=== PATIENT | female | born 1975 | race Caucasian/White ===

== ENCOUNTER 2022-09-28 09:07 | Outpatient (CLI) | payer BC, SELFPAY ==
--- NOTE | 2022-09-28 09:15 | CRLHL7_ITS ---
For Patients: As a result of the Century Cures Act, medical imaging exams and procedure reports are released immediately into your electronic medical record. You may view this report before your referring provider. If you have questions, please contact your health care provider. BILATERAL SCREENING MAMMOGRAM WITH COMPUTER-AIDED DETECTION TECHNIQUE: CC and MLO views were obtained. These mammographic images have been obtained using full-field digital technique. These mammographic images were interpreted with the benefit of computer-aided detection. COMPARISON FILM: 09/27/21, 08/17/20, 09/24/19. FINDINGS: The breasts are heterogeneously dense, which may obscure small masses. IMPRESSION: There is no radiographic evidence for malignancy. ASSESSMENT: BI-RADS Category 1: Negative RECOMMENDATION: Routine screening mammogram in 1 year. A lay language report of this examination will be provided to the patient. FRED DOHERTY M.D. Diagnostic/Nuclear Medicine Radiologist [email or web address] Transcribed: 2:[address]/Dictated by: Fred Doherty MD @ 09/28/2022 10:06:00 AM (Electronically Signed)
== END 2022-09-28 09:08 | disposition home or self-care (01) ==
LOC: MAMMO 09:08
PROVIDERS: PCP Internal Medicine; Visit Provider Internal Medicine
DX: Z12.31 Encounter for screening mammogram for malignant neoplasm of breast (principal); R92.2 Inconclusive mammogram; Z01.419 Encounter for gynecological examination (general) (routine) without abnormal findings; E78.5 Hyperlipidemia, unspecified; E03.9 Hypothyroidism, unspecified
CPT/HCPCS: 77067; 80053; 80061; 84443

== ENCOUNTER 2023-11-30 08:12 | Outpatient (CLI) | payer MEDICAID, SELFPAY | END 2023-11-30 08:13 | disposition home or self-care (01) | LOC: NFLDREF 10:12 | PROVIDERS: PCP Internal Medicine; Referring Provider Internal Medicine; Visit Provider Internal Medicine | DX: E03.9 Hypothyroidism, unspecified (principal); E06.3 Autoimmune thyroiditis; E78.5 Hyperlipidemia, unspecified | CPT/HCPCS: 80053; 80061; 84443 ==

== ENCOUNTER 2023-11-30 08:16 | Outpatient (CLI) | payer MEDICAID, SELFPAY ==
--- NOTE | 2023-11-30 09:15 | CRLHL7_ITS ---
For Patients: As a result of the Century Cures Act, medical imaging exams and procedure reports are released immediately into your electronic medical record. You may view this report before your referring provider. If you have questions, please contact your health care provider. BILATERAL SCREENING MAMMOGRAM WITH COMPUTER-AIDED DETECTION AND TOMOSYNTHESIS TECHNIQUE: CC and MLO views were obtained. These mammographic images have been obtained using full-field digital technique. These mammographic images were interpreted with the benefit of computer-aided detection. Breast Tomosynthesis was used in this interpretation. COMPARISON FILM: 09/28/22, 09/27/21, 08/17/20. FINDINGS: The breasts are heterogeneously dense, which may obscure small masses. IMPRESSION: There is no radiographic evidence for malignancy. ASSESSMENT: BI-RADS Category 1: Negative RECOMMENDATION: Routine screening mammogram in 1 year. A lay language report of this examination will be provided to the patient. Roly Tapia M.D. Diagnostic Radiologist [email or web address] SP/Dictated by: Roly Tapia MD @ 11/30/2023 10:09:00 AM (Electronically Signed)
--- NOTE | 2023-11-30 11:15 | CRLHL7_ITS ---
For Patients: As a result of the Century Cures Act, medical imaging exams and procedure reports are released immediately into your electronic medical record. You may view this report before your referring provider. If you have questions, please contact your health care provider. INDICATION: Menorrhagia COMPARISON: none TECHNIQUE: 2D gale scale and color Doppler images were acquired of the pelvis using a transabdominal and transvaginal approach. FINDINGS: Sonographic images demonstrate a normal size and smooth outer contour of the uterus. Uterus measures 10.2 cm in length by 3.6 cm in AP diameter by 4.7 cm in transverse dimension. Intramural fibroid is present measuring 1.6 x 1.4 x 1.5 cm. The endometrial lining measures 12 mm in composite thickness. Post endometrial biopsy changes are present. Echogenic focus associated with the fundal endometrium measuring 2.0 x 0.8 x 1.5 cm. The right ovary measures 3.2 x 2.4 x 2.6 cm in size and the left ovary measures 2.9 x 0.9 x 1.5 cm. The ovaries demonstrate normal arterial and venous blood flow on color Doppler analysis. There are no suspicious fluid collections within the cul-de-sac. Collapsing cyst right ovary measuring 2.4 x 1.5 x 2.0 cm. IMPRESSION: Endometrial thickness 1.2 cm with possible polyp versus post endometrial biopsy changes. Collapsing right ovarian cyst measuring 2.4 cm. No excess pelvic free fluid. Intramural fibroid measuring 1.6 cm. Dictated by Roly Tapia MD @ 11/30/2023 12:44:34 PM (Electronically Signed)
== END 2023-11-30 08:17 | disposition home or self-care (01) ==
PROVIDERS: PCP Internal Medicine; Visit Provider Internal Medicine
DX: Z12.31 Encounter for screening mammogram for malignant neoplasm of breast (principal); R92.2 Inconclusive mammogram; N92.0 Excessive and frequent menstruation with regular cycle; N83.201 Unspecified ovarian cyst, right side; R93.89 Abnormal findings on diagnostic imaging of other specified body structures; D25.1 Intramural leiomyoma of uterus
CPT/HCPCS: 76830; 76856; 77063; 77067

== ENCOUNTER 2024-10-20 08:05 | Outpatient (CLI) | payer BC, SELFPAY ==
--- OUTSIDE RECORDS SUMMARY | 2024-10-20 08:08 | XMS_ITS | Clinical Summary ---
Author Organization [facility] Address [address] [place] [id number] Care Team Providers Care Optical Assistant Name Role Phone Franco Metz MD Primary Care Provider Allergies No known active allergies Social History Tobacco Use Types Packs/Day Years Used Date Smoking Tobacco: Never Assessed Adolescent Education Answer Date Record ed Getting School Help Needed Not on file 08/03 Comments Unknown Sex and Gender Information Value Date Recorded Sex Assigned at Not on file Legal Sex Female 3:04 PM CDT Gender Identity Not on file Sexual Orientation Not on file Plan of Treatment Health Maintenance Due Date Last Done Comments ADVANCE CARE PLANNING 1974 ANNUAL REVIEW OF HM ORDERS 1974 CT COLONOGRAPHY 1974 FIT 1974 FLEX SIG 1974 GLUCOSE 1974 MAMMO SCREENING 1974 YEARLY PREVENTIVE VISIT 1974 sDNA (Cologuard) 1974 COLONOSCOPY 1984 COLORECTAL CANCER SCREENING 1984 HIV SCREENING 1989 HEPATITIS C SCREENING 1992 HEPATITIS B IMMUNIZATION (1 of 3 - 19+ 3-dose series) 1993 LIPID 2014 PAP 11/28/2021 11/28/2018, 11/28/2018 PHQ-2 (once per calendar year) 2023 COVID-19 Vaccine (3 - 2023- season) 2024 01/15/2021, 12/25/2020 INFLUENZA VACCINE (#1) 2024 , 10/01/2020, 09/09/2019, Additional history exists ZOSTER IMMUNIZATION (1 of 2) 2024 DTAP/TDAP/TD IMMUNIZATION (3 - Td or Tdap) 12/18/2029 12/18/2019, 09/13/2010 RSV VACCINE (1 - 1-dose 75+ series) 2049 HPV IMMUNIZATION Aged Out No longer e ligible based on patient's age to complete this topic MENINGITIS IMMUNIZATION Aged Out No l onger eligible based on patient's age to complete this topic Pneumococcal Vaccine: Pediatrics (0 to 5 Years) and At-Risk Patients (6 to 64 Years) Aged Out No longer eligible based on patient's age to complete this topic RSV MONOCLONAL ANTIBODY Aged Out No l onger eligible based on patient's age to complete this topic Insurance [facility] Care Teams Optical Assistant Relationship Specialty Start Date End Date Franco Metz MD [facility] [address] [place] [address] PCP - General Emergency Medicine 07/02/17
--- OUTSIDE RECORDS SUMMARY | 2024-10-20 08:08 | XMS_ITS | Referral Summary ---
Author Organization [facility] Address [address] [place] [address]. [place] [address] Care Team Providers Care Promotions Representative Name Role Phone Franco Metz MD Primary [...] Orientation Not on file Plan of Treatment Not on file Insurance [facility] [place] [place] [address] Care Teams Promotions Representative Relationship Specialty Start Date End Date Franco Metz MD [facility] [address] [place], [place] [id number] PCP - General Emergency Medicine 07/02/17
--- OUTSIDE RECORDS SUMMARY | 2024-10-20 08:08 | XMS_ITS | Encounter Summary ---
Author Organization [facility] Address [address] [place] [id number] Care Team Providers Care Industrial Technologist Name Role Phone Franco Metz MD Primary Care Provider Reason for Visit * Reason Onset Date Comments Appointment 05/02/2022 Please call to sandee lo a calcium Coronary scan appt Encounter Details Date Type Department Care Team (Late st Contact Info) Description 05/02/2022 [facility] [address] [id number] None Appointment (Please call to schedule a calcium Coronary scan appt) Social History Tobacco Use Types Packs/Day Years Used Date Smoking Tobacco: Never Assessed Comments Unknown Sex and Gender Information Value Date Recorded Sex Assigned at Not on file Legal Sex Female 3:04 PM CDT Gender Identity Not on file Sexual Orientation Not on file documented as of this encounter Miscellaneous Notes * Telephone Encounter - Allison Cortez - 05/02/2022 3:35 PM CDT [facility] Call Center Phone Message May a detailed message be left on voicemail: yes Reason for Call: Appointment Intake Referring Provider Name: Diagnosis and/or Symptoms: needs to be called to schedule a coronary calcium scan at Action Taken: Message routed to: [facility] cardio Travel Screening: Not Applicable documented in this encounter Plan of Treatment Not on file documented as of this encounter Visit Diagnoses Not on filedocumented in this encounter Care Teams Industrial Technologist Relationship Specialty Start Date End Date Franco Metz MD [facility] [address] [place] [address] PCP - General Emergency Medicine 07/02/17 documented as of this encounter
--- OUTSIDE RECORDS SUMMARY | 2024-10-20 08:08 | XMS_ITS | Clinical Summary ---
Author Organization [facility] Address [place], [place] [address] Care Team Providers Care Record Tester Name Role Phone Lazara Salcido MD Primary Care Provider [phone] Allergies Active Allergy Reactions Criticality Noted Date Comments Penicillins Intolerance-Can't Take 01/25/2008 Local reaction to right gluteal injection Medications atorvastatin (LIPITOR) 20 mg tablet Take 20 mg by mouth at bedtime. 10/16/2023 Active atorvastatin (LIPITOR) 40 mg tablet Take 40 mg by mouth at bedtime. 10/16/2023 Active levothyroxine (SYNTHROID) 75 mcg tablet Take 75 mcg by mouth once daily. 11/01/2023 Active montelukast (SINGULAIR) 10 mg tablet Take 10 mg by mouth at bedtime. 10/16/2023 Active azithromycin (ZITHROMAX) 250 mg tabletIndications :Strep pharyngitis Take 500 mg (2 tabs) by mouth on day 1, then 250 mg (1 tab) daily for days 2-5. 6 Tablet 12/21/2023 Active Active Problems Problem Noted Date Diagnosed Date FAMILY HX OF PREMATURE CORONARY ARTERY DISEASE Other and unspecified hyperlipidemia RECENT NICOTINE DEPENDENCE Social History Tobacco Use Types Packs/Day Years Used Date Smoking Tobacco: Former Cigarettes 0.3 10 1 11/12/1995 - 09/12/2006 Tobacco Cessation:Counseling Given: Not Answered Comments:social smoker- one pack a week Alcohol Use Standard Drinks/Week Comments Yes 0 (1 standard drink = 0.6 oz pur e alcohol) 2 drinks a week Social Connections Answer Date Recorded Do you often feel lonely or isolated from those around you? 0 12/21/2023 Financial Resource Strain Answer Date R ecorded Difficulty of Paying Living Expenses 3 12/21/2023 Difficulty of Paying Living Expenses Not on file 12/21/2023 Food Insecurity Answer Date Recorded Do you worry your food will run out before you are able to buy more? 1 12/21/2023 Transportation Needs Answer Date Record ed Does lack of transportation keep you from medica l appointments? 1 12/21/2023 Does lack of transportation keep you from work, meetings or getting things that you need? 1 12/21/2023 Housing Stability Answer Date Recorded What is your housing situation today? 1 12/21/2023 Comments No Sex and Gender Information Value Date Recorded Sex Assigned at Not on file Legal Sex Female 7:12 AM GOLF INSTRUCTOR Gender Identity Not on file Sexual Orientation Not on file Obstetrics History Last Filed Vital Signs Vital Sign Reading Time Taken Comments Blood Pressure 120/76 12/21/2023 2:08 PM GOLF INSTRUCTOR Pulse 123 12/21/2023 2:08 PM GOLF INSTRUCTOR Temperature 37.1 C (98.8 F) 12/21/2023 2:08 PM GOLF INSTRUCTOR just took 1000mg of tylenol Respiratory Rate 16 11/01/2011 2:52 PM GOLF INSTRUCTOR Oxygen Saturation 96% 12/21/2023 2:0 8 PM GOLF INSTRUCTOR Inhaled Oxygen Concentration - - Weight 93.9 kg (207 lb) 12/21/2023 2:08 PM GOLF INSTRUCTOR Height 167.6 cm (5' 6) 10/09/2006 3:30 PM GOLF INSTRUCTOR Body Mass Index - - Plan of Treatment Health Maintenance Due Date Last Done Comments Tdap 1985 Depression screening for age 12+ 1986 HIV for age 15-65 1989 BMI (ht and wt on same day) for age 18+ 1992 Hepatitis C screening for age 18-79 1992 Tetanus booster 1994 Colonoscopy through age 75 2019 Lipids for age 45-75 2019 Mammogram for age 45-75 2019 COVID-19 vaccine series ( season) 2024 01/15/2021, 12/25/2020 Influenza for age 50-64 2024 Zoster (shingles) series for age 50+ (1 of 2) 2024 Pap test for age 21-65 11/30/2026 4, 11/30/2023, 11/28/2018, Additional history exists Pneumococcal series for age 6-64 Aged Out No longer eligible based on patient's age to complete this topic Procedures Procedure Name Priority Date/Time Associated Diagnosis Comments HPV HIGH RISK Routine 11/30/2023 9:30 AM GOLF INSTRUCTOR from Last 3 Months or Most Recently Relevant to Health Maintenance Results * HPV HIGH RISK (11/30/2023 9:30 AM GOLF INSTRUCTOR) TYPE 16 Negative Negative 12/05/2023 5:12 PM GOLF INSTRUCTOR [facility] TYPE 18 Negative Negative 12/05/2023 5:12 PM GOLF INSTRUCTOR [facility] OTHER HIGH RISK TYPES Negative Negative 12/05/2023 5:12 PM GOLF INSTRUCTOR [facility] Other (Cervical) 11/30/2023 9:30 AM GOLF INSTRUCTOR 12/03/2023 5:33 PM GOLF INSTRUCTOR Narrative [facility] - 12/05/2023 5:12 PM GOLF INSTRUCTOR HPV types 16, 18, 31, 33, 35, 39, 45, 51, 52, 56, 58, 59, 66 and 68 DNA were undetectable or below the pre-set threshold. Methodology: Karen Gavin 4800 HPV Test us Vonnie Beckman NP MICROBIOLOGY Final Res ult [facility] [address] [place] [id number], from Last 3 Months or Most Recently Relevant to Health Maintenance Insurance [facility] [employer] Care Teams Record Tester Relationship Specialty Start Date End Date Lazara Salcido MD [address] [place] [phone] PCP - General Obstetrics and Gynecology 09/05/11
--- NOTE | 2024-10-20 09:06 | W.ANESCHARGE ---
Anesthesia Charges Start Date/Time Anesthesia Start Date: 10/20/24 Anesthesia Start Time: 08:38 Stop Date/Time Anesthesia Stop Date: 10/20/24 Anesthesia Stop Time: 09:05
--- NOTE | 2024-10-20 09:31 | W.ANESCHARGE ---
Anesthesia Charges Start Date/Time Anesthesia Start Date: 10/20/24 Anesthesia Start Time: 08:38 Stop Date/Time Anesthesia Stop Date: 10/20/24 Anesthesia Stop Time: 09:05
== END 2024-10-20 08:06 | disposition home or self-care (01) ==
LOC: OP CLINIC 08:06
PROVIDERS: PCP Internal Medicine; Visit Provider Surgery
DX: Z12.11 Encounter for screening for malignant neoplasm of colon (principal); D12.8 Benign neoplasm of rectum; Z80.0 Family history of malignant neoplasm of digestive organs
CPT/HCPCS: 00811; 45385; 88305; J2704

== ENCOUNTER 2024-12-26 07:33 | Outpatient (CLI) | payer BC, SELFPAY | END 2024-12-26 07:34 | disposition home or self-care (01) | LOC: NFLDREF 12:52 | PROVIDERS: PCP Internal Medicine; Referring Provider Internal Medicine; Visit Provider Internal Medicine | DX: Z00.00 Encounter for general adult medical examination without abnormal findings (principal); E78.5 Hyperlipidemia, unspecified; E06.3 Autoimmune thyroiditis; E03.9 Hypothyroidism, unspecified; Z13.6 Encounter for screening for cardiovascular disorders; Z13.9 Encounter for screening, unspecified | CPT/HCPCS: 80053; 80061; 84439; 84443 ==

== ENCOUNTER 2025-02-23 12:52 | Outpatient (CLI) | payer BC, SELFPAY ==
--- NOTE | 2025-02-23 13:00 | CRLHL7_ITS ---
For Patients: As a result of the Century Cures Act, medical imaging exams and procedure reports are released immediately into your electronic medical record. You may view this report before your referring provider. If you have questions, please contact your health care provider. INDICATION: BILATERAL SCREENING MAMMOGRAM, ASYMPTOMATIC 49 YEAR OLD FEMALE COMPARISON: 11/30/23, 09/28/22, 09/27/21 TECHNIQUE: CC and MLO views were obtained. These mammographic images have been obtained using full-field digital technique. These mammographic images were interpreted with the benefit of computer aided detection and tomosynthesis. BREAST COMPOSITION: The breasts are heterogeneously dense, which may obscure small masses. FINDINGS: No suspicious findings. ASSESSMENT: BI-RADS 1 Negative RECOMMENDATION: Annual screening mammogram. A lay language report of this examination will be provided to the patient. Dictated by: Roly Tapia MD @ 03/04/2025 09:08:55 (Electronically Signed)
== END 2025-02-23 12:53 | disposition home or self-care (01) ==
LOC: MAMMO 12:53
PROVIDERS: PCP Internal Medicine; Visit Provider Internal Medicine
DX: Z12.31 Encounter for screening mammogram for malignant neoplasm of breast (principal); R92.333 Mammographic heterogeneous density, bilateral breasts
CPT/HCPCS: 77063; 77067

== ENCOUNTER 2025-07-15 10:23 | Outpatient (CLI) | payer BC, SELFPAY | END 2025-07-15 10:24 | disposition home or self-care (01) | LOC: NFLDREF 07-20 21:04 | PROVIDERS: PCP Internal Medicine; Referring Provider Internal Medicine; Visit Provider Internal Medicine | DX: E03.9 Hypothyroidism, unspecified (principal) | CPT/HCPCS: 84439; 84443 ==

== ENCOUNTER 2025-09-21 13:27 | Outpatient (CLI) | payer BC, SELFPAY ==
[2025-09-21 15:13] LABS: Albumin* 4.5 g/dL (3.3-5.0); Chloride* 98 mmol/L (96-114); Potassium* 4.0 mmol/L (3.6-5.1); Sodium* 136 mmol/L (135-149)
[2025-09-21 15:15] LABS: Iron* 72 ug/dL (37-170)
[2025-09-21 15:16] LABS: Alanine Aminotransferase* 35 U/L (4-35); Alkaline Phosphatase* 72 U/L (40-150); Anion Gap 8 mEq/L (7-15); Aspartate Amino Transferase* 31 U/L (12-35); Bilirubin Total* 0.8 mg/dL (0.1-1.5); Blood Urea Nitrogen* 11 mg/dL (7-30); Carbon Dioxide* 30 mmol/L (20-32); Creatinine* 0.8 mg/dL (0.5-1.5); Estimated Glomerular Filt Rate 89 ml/min; Total Protein* 7.4 g/dL (6.0-8.3)
[2025-09-21 15:17] LABS: Calcium* 9.1 mg/dL (8.4-10.6); Glucose* 89 mg/dL (60-115)
[2025-09-21 15:25] LABS: Percent Iron Saturation 23 % (20-50); Total Iron Binding Capacity 315 ug/dL (265-497)
[2025-09-21 15:34] LABS: Free T4 Free Thyroxine* 0.82 ng/dL (0.70-1.85)
[2025-09-21 18:01] LABS: Erythrocyte SedimentationRate* 7 mm/hr (2-20)
[2025-09-23 11:02] LABS: TPO Antibody 268.7 IU/mL (0.0-9.0)
[2025-09-23 16:04] LABS: CRP, High Sensitivity 3.5 mg/L (<=3.0)
[2025-09-23 16:11] LABS: Free T3 2.6 pg/mL (2.5-4.3)
[2025-09-24 07:01] LABS: Anti-Nuclear Ab(ANA)IgG ELISA Detected (None Detected)
[2025-09-25 08:55] LABS: Antinuclear AntibodyHEp-2 <1:80 (<1:80)
== END 2025-09-21 13:28 | disposition home or self-care (01) ==
LOC: NPINS 13:28
PROVIDERS: PCP Internal Medicine; Visit Provider Student in an Organized Health Care Education/Training Program
DX: E06.3 Autoimmune thyroiditis (principal); R79.0 Abnormal level of blood mineral; Z86.2 Personal history of diseases of the blood and blood-forming organs and certain disorders involving the immune mechanism
CPT/HCPCS: 80053; 82728; 83540; 83550; 84439; 84443; 84481; 84550; 85651; 86038; 86039; 86141; 86376; 86800